=== PATIENT | female | born 2000 | race Caucasian/White ===

== ENCOUNTER 2020-02-12 20:41 | Emergency (ER) | payer MEDICAID ==
[~2020-02-12] VITALS: Ht 162.5 cm; Wt 54.9 kg
[2020-02-12 21:51] LABS: BILIRUBIN Negative (Negative); BLOOD Negative (Negative); CLARITY Clear (Clear); COLOR Yellow (Yellow); GLUCOSE Negative (Negative); KETONE Negative (Negative); LEUKO ESTERASE Negative (Negative); NITRITE Negative (Negative); SPECIFIC GRAVITY 1.025 (1.001-1.030); UROBILINOGEN 0.2 E.U./dl (0.0-1.0)
[2020-02-12 21:58] LABS: BACTERIA 2+; RBC 0-2 rbc/hpf (0-2)
[2020-02-12] MEDS ORDERED: MACROBID100 M1 PO (22:18)
== END 2020-02-12 22:34 | disposition home or self-care (01) ==
LOC: ED 20:41
PROVIDERS: Internal Medicine
DX: O23.41 Unspecified infection of urinary tract in pregnancy, first trimester (principal); Z3A.01 Less than 8 weeks gestation of pregnancy